=== PATIENT | female | born 1980 | race Caucasian/White ===

== ENCOUNTER 2020-06-04 17:32 | Outpatient (REF) | payer SELFPAY | END 2020-06-04 17:33 | disposition home or self-care (01) | LOC: HO.LAB 17:32 | PROVIDERS: Visit Provider Internal Medicine | DX: Z20.828 Contact with and (suspected) exposure to other viral communicable diseases (principal) | CPT/HCPCS: C9803; U0003 ==

== ENCOUNTER 2022-04-29 15:57 | Emergency (ER) | payer SELFPAY ==
--- NOTE | ~2022-04-29 | XR_ITS ---
EXAMINATION: XR CHEST CLINICAL INFORMATION: Chest pain. COMPARISON: None TECHNIQUE: Frontal view of the chest was obtained. FINDINGS: No significant abnormality is noted involving the heart, lungs, mediastinum, bony thorax or soft tissues. XR/XR chest 1V IMPRESSION: No acute cardiopulmonary process.
[2022-04-29 16:06] VITALS: BP 126/58; PULSE 74; RESP 18; TEMP 37.2; O2SAT 100; BMI 20.9
[2022-04-29 16:33] LABS: COVID-19 Test Negative (Negative); IDNOW Serial# 9DB6401D
[2022-04-29 16:35] LABS: Strep A Nucleic Acid Negative (Negative)
[2022-04-29 16:36] LABS: Influenza A Negative (Negative); Influenza B2 Negative (Negative)
--- NOTE | 2022-04-29 17:07 | ED.URI ---
HPI - URI/Sore Throat General Chief Complaint: Upper Respiratory Symptoms Stated Complaint: cough, headaches, sore throat Time Seen by Provider: 04/29/22 17:05 Source: patient Mode of arrival: ambulatory Limitations: no limitations History of Present Illness HPI Narrative: Patient is a 41-year-old female who presents emergency department for evaluation of upper respiratory symptoms; headache, congestion, sore throat, fatigue. Symptoms onset was 2 days ago. She reports a positive COVID-19 exposure while at a [employer]. Additionally complains of pain with urination. Denies fevers, chills, dizziness, lightheadedness, vision changes, neck pain, neck stiffness, nausea, vomiting, abdominal pain, back pain, flank pain numbness or tingling of extremities. Denies possibility of . Denies pelvic pain, abnormal vaginal discharge. Related Data Allergies Allergy/AdvReac Type Severity Reaction Status Date / Time No Known Allergies Allergy Verified 04/29/22 16:06 Review of Systems Review of Systems: Constitutional: No fever. No chills. No weakness. Positive fatigue. ENT/ Mouth: No Ear Pain, positive Nasal Congestion, positive sore throat, No Rhinorrhea, No Swallowing Difficulty Skin: No rash or itching. Cardiovascular: No chest pain. No palpitations. Respiratory: No shortness of breath. No cough. No sputum production. Gastrointestinal: No nausea. No vomiting. No diarrhea. No abdominal pain. Genitourinary: Positive burning micturition. No urinary frequency. Neurologic: Positive headache. No dizziness. No syncope. No numbness or tingling in the extremities. Musculoskeletal: No muscle pain. No back pain. No joint pain or stiffness. Yes all other systems are reviewed and are negative [facility] Past Medical History Attestation statement: The following information was validated with the patient. Source: old records reviewed Social History Social History Advance Directives: No Advance Directives Information Provided: No Physical Exam Vital Signs: Vital Signs: Last Vital Signs Temp 98.9 F 04/29/22 16:06 Pulse 74 04/29/22 16:06 Resp 18 04/29/22 16:06 BP 126/58 L 04/29/22 16:06 Pulse Ox 100 04/29/22 16:06 O2 Del Method 04/29/22 16:06 BMI result Body Mass Index 20.9 Vital signs have been reviewed as normal and appeared to be correct. Blood pressure normal.? Heart rate normal.? Respiration rate normal. Temperature normal.? Oxygen saturation normal. Appearance: Alert.?Oriented to person, place and time. No acute distress.?Normal affect. Eyes: Pupils equal, round and reactive to light.? ENT: TM normal bilaterally. Pharynx normal.?? Neck: Normal inspection.? Neck supple.??No cervical adenopathy CVS: Heart sounds normal. Normal heart rate and rhythm.? Pulses normal.?? Respiratory: No respiratory distress.? Lung sounds clear to auscultation bilaterally?? Abdomen: Soft and non-tender. Normoactive bowel sounds. Skin: Skin warm and dry.? Normal skin color.? ? Extremities: No lower extremity edema.? Neuro: Moves all extremities spontaneously. Sensation intact bilaterally. No motor deficits. Ambulates with normal steady gait. Course Course Course Narrative: Patient is a 41-year-old female with no significant past medical history, presenting for evaluation of upper respiratory symptoms. COVID-19 testing negative. Influenza testing negative. Strep testing negative. Chest x-ray reveals no acute cardiopulmonary process. At this time history and physical exam not consistent with ACS/PE/pneumonia. Well-appearing, nontoxic, afebrile, no tachycardia or tachypnea/hypoxia. Speaking clear full sentences, ambulatory with steady gait. Suspect symptoms to be secondary to upper respiratory infection, however given her recent exposure did advise that she should have repeat COVID-19 testing obtained in 2-3 days especially for symptoms continue. Discussed conservative treatment including rest, hydration, Tylenol/ibuprofen as needed for fever and body aches, saline nasal spray, humidifier, pqnn-lab-yclxcrc cold medication. Urine negative, and Urinalysis reveals no urinary tract infection, not consistent with pyelonephritis, nephrolithiasis, hydronephrosis. Advised to follow-up with primary care provider within the next week, discussed reasons to return back to the emergency department. All questions were answered. Patient discharged home in stable condition. MDM - URI/Sore Throat Medical Records Attestation: I reviewed the patient's medical records. Lab Data Attestation: I reviewed the patient's lab results. Labs: Lab Results 04/29/22 04/29/22 04/29/22 Range/Units 16:10 16:11 16:11 Urine Color Urine Appearance Urine pH (5.0-9.0) Ur Specific Mccleary (1.005-1.025) Urine Protein (Neg-Trace) mg/dL Urine Glucose (UA) (Negative) mg/dL Urine Ketones (Negative) mg/dL Urine Blood (Negative) Urine Nitrite (Negative) Ur Leukocyte Esterase (Negative) Urine RBC (0-2) /HPF Urine WBC (0-5) /HPF Ur Squamous Epith Cells (0-2) /HPF Urine Bacteria (None Seen) Hyaline Casts (0-2) /LPF Urine Test (NEGATIVE) COVID-19 (RYDER) Negative (Negative) COVID-19 [facility] Com See Note Influenza Type A (MARGARET) Negative (Negative) Influenza Type B (MARGARET) Negative (Negative) Influenza A & B Note See Note S. pyogenes GrpA MARGARET Negative (Negative) 04/29/22 04/29/22 Range/Units 17:46 17:46 Urine Color Yellow Urine Appearance Cloudy Urine pH 5.5 (5.0-9.0) Ur Specific Mccleary 1.015 (1.005-1.025) Urine Protein Negative (Neg-Trace) mg/dL Urine Glucose (UA) Negative (Negative) mg/dL Urine Ketones Negative (Negative) mg/dL Urine Blood Trace H (Negative) Urine Nitrite Negative (Negative) Ur Leukocyte Esterase Negative (Negative) Urine RBC 0-2 (0-2) /HPF Urine WBC 0-5 (0-5) /HPF Ur Squamous Epith Cells 0-2 (0-2) /HPF Urine Bacteria None Seen (None Seen) Hyaline Casts 0-2 (0-2) /LPF Urine Test NEGATIVE (NEGATIVE) COVID-19 (RYDER) (Negative) COVID-19 Clin Com Influenza Type A (MARGARET) (Negative) Influenza Type B (MARGARET) (Negative) Influenza A & B Note S. pyogenes GrpA MARGARET (Negative) Imaging Data Chest x-ray: Radiologist's impression: XR/XR chest 1V IMPRESSION: No acute cardiopulmonary process. Discharge Plan Discharge Clinical Impression: Upper respiratory infection Patient Disposition: Home, Self-Care Instructions: Upper Respiratory Infection (ED) Additional Instructions: Your urine test does not reveal any urinary tract infection. As we discussed, you should consider having your COVID-19 test repeated in 2-3 days especially if you continue to have symptoms given your recent contact. Be sure to rest, stay well hydrated drinking plenty of fluids, eat small frequent meals. Tylenol/ibuprofen can be used as needed for fever/pain. Wlmc-xjt-dhznjpu cold medications may be helpful as well for symptoms. Saline nasal spray, humidifier may be helpful for nasal congestion. You may return to the emergency department with any new or worsening symptoms or concerns. Follow-up with your primary care provider as needed. Referrals: Physician,None [Primary Care Provider] - Stand Alone Forms: Work/School Release Interventions: ED Discharge Assessment Last Done: 04/29/22 18:54 Discharge Date/Time: 04/29/22 18:55 Print Language: New Zealander
[2022-04-29 17:55] LABS: Appearance Urine Cloudy; Color Urine Yellow; Glucose Urine UA Negative (Negative); Leukocyte Esterase Urine Negative (Negative); Nitrite Urine Negative (Negative); PH 5.5 (5.0-9.0); Specific Gravity - Urine 1.015 (1.005-1.025); UMIC TRIGGER UACC YES; UPreg QC Valid YES; Urine Blood Trace (Negative); Urine Ketones Negative (Negative); Urine Pregnancy NEGATIVE (NEGATIVE); Urine Protein Negative (Neg-Trace)
[2022-04-29 18:06] LABS: Bacteria Urine None Seen (None Seen); Hyaline Casts Urine 0-2 /LPF (0-2); RBC Urine 0-2 /HPF (0-2); Squamous Epithelial Cell Urine 0-2 /HPF (0-2); WBC Urine 0-5 /HPF (0-5)
== END 2022-04-29 18:55 | disposition home or self-care (01) ==
PROVIDERS: Nurse Practitioner Family; Emergency Provider Student in an Organized Health Care Education/Training Program
DX: J06.9 Acute upper respiratory infection, unspecified (principal); R51.9 Headache, unspecified; J02.9 Acute pharyngitis, unspecified; R05.9 Cough, unspecified; Z20.822 Contact with and (suspected) exposure to COVID-19
CPT/HCPCS: 71045; 81001; 81025; 87502; 87635; 87651; 99282; 99283

== ENCOUNTER 2023-09-14 17:05 | Emergency (ER) | payer MEDICAID, SELFPAY ==
--- NOTE | ~2023-09-14 | XR_ITS ---
EXAMINATION: XR HAND, LEFT CLINICAL INFORMATION: Pain, injury, first digit. COMPARISON: None available. TECHNIQUE: PA, lateral, and oblique views of the left hand. FINDINGS: The bones and soft tissues are normal. No fracture. Alignment is anatomic. Joint spaces are maintained. No erosions or soft tissue calcifications. XR/XR hand LT min 3V IMPRESSION: Normal left hand.
--- NOTE | 2023-09-14 17:39 | ED.GENADULT ---
HPI - General Adult General Chief complaint: Extremity Injury, Upper Stated complaint: left hand injury swollen and pain Time Seen by Provider: 09/14/23 22:20 Source: patient Mode of arrival: ambulatory Limitations: no limitations History of Present Illness HPI narrative: Patient comes in the emergency room complaining of inflammation/erythema in the webspace between the thumb and index finger of the right hand in the dorsal aspect. 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 Patient states that she also hit her thumb with the instrument. Related Data Previous Rx's Medication Instructions Recorded cephalexin 250 mg capsule 250 mg PO BID #14 caps 09/14/23 doxycycline hyclate 100 mg capsule 100 mg PO BID #14 caps 09/14/23 hydrocortisone 1 % topical cream 1 appl topical QID PRN rash #28.4 09/14/23 (Cortisone (hydrocortisone)) grams Allergies Allergy/AdvReac Type Severity Reaction Status Date / Time No Known Allergies Allergy Verified 09/14/23 17:40 Review of Systems Review of Systems: Constitutional : No Weight loss, No Fever, No Chills, No Night Sweats, No Fatigue, No Malaise ENT/Mouth : No Hearing loss, No Ear Pain, No Nasal Congestion, No Sinus Pain, No Hoarseness, No sore throat, No Rhinorrhea, No Swallowing Difficulty Eyes: No Eye Pain, No Swelling, No Redness, No Foreign Body, No Discharge, No Vision Changes Cardiovascular : No Chest Pain, No SOB, No Dyspnea on Exertion, No Orthopnea, No Edema, No Palpitations Respiratory : No Cough, No Sputum, No Wheezing, No Smoke Exposure, No Dyspnea Gastrointestinal : No Nausea, No Vomiting, No Diarrhea, No Constipation, No abdominal Pain, No Hematochezia, No Melena Genitourinary : no irregular bleeding, No Dysuria, No Urinary Frequency, No Hematuria, No Urinary Incontinence, No Urgency, No Flank Pain, No Urinary Flow Changes, No Hesitancy Musculoskeletal : No joint pain, No Myalgias, No Joint Swelling Skin : Complaining of skin erythema and pain between the index and thumb dorsal aspect of the right hand Neuro : No Weakness, No Numbness, No Paresthesias, No Loss of Consciousness, No Dizziness, No Headache Psych : No Anxiety/Panic, No Depression, No SI/HI/AH/VH, No Social Issues, Heme/Lymph: No Bruising, No Bleeding,No Lymphadenopathy Endocrine : No Polyuria, No Polydipsia, No Temperature Intolerance [facility] Social History Social History Advance Directives: No Advance Directives Information Provided: No Physical Exam ED Vital Signs: Vital Signs - 24 hr 09/14/23 17:41 Temperature 97.6 F Pulse Rate 82 Respiratory Rate 16 Blood Pressure 127/88 Pulse Oximetry 99 Oxygen Delivery Method Room Air BMI result Body Mass Index 25.0 Const Other: Appearance: Alert. Oriented X3. No acute distress. Eyes: Pupils equal, round and reactive to light. ENT: Pharynx normal. Neck: Normal inspection. Neck supple. No lymph nodes noted. No crepitus CVS: Normal heart rate and rhythm. Pulses normal. Normal S1 and S2 Respiratory: No respiratory distress. Breath sounds normal. No Wheezing. No rales Abdomen: Soft and nontender. No rigidity. No distention. Skin: Skin warm and dry. Normal skin color. Normal skin turgor. See extremity below Extremities: No lower extremity edema. No Lacerations. No Rash, in the webspace dorsal aspect between the thumb and index finger there is a patch of erythema, pain to palpation. Patient able to flex and extend the fingers. Neuro: Oriented X 3. No motor deficit. No sensory deficit. Moving all extremities. No slurred speech. CN 2 through 12 grossly intact Psych: calm, cooperative, normal affect Course Course Course Narrative: RME performed by Devorah Fallon PA-C. Patient is a 43 year old assigned female at presenting to the emergency department with left hand / thumb pain. Detailed physical exam and review of systems are deferred to the lumber kiln operator. Imaging ordered. Patient placed back in the waiting room pending room availability and results. Medical Decision Making Medical Decision Making MDM Narrative: -discussed the physical exam with the patient, slightly cellulitis versus topical dermatitis -my interpretation of x-ray of the hand: No fracture, normal alignment -patient was given the 1st dose of antibiotics in the emergency room Differential Diagnosis Differential Diagnoses: The differential diagnosis associated with the presentation includes (As above) Independent Interpretation I performed an independent interpretation of an: Plain X-Ray Radiology Impression Discussion of test interpretation with radiology: I have reviewed the radiologist's reading. Radiologist Impression: FINDINGS: The bones and soft tissues are normal. No fracture. Alignment is anatomic. Joint spaces are maintained. No erosions or soft tissue calcifications. XR/XR hand LT min 3V IMPRESSION: Normal left hand. Discharge Plan Discharge Clinical Impression: Cellulitis, Sprain and strain of wrist Patient Disposition: Home, Self-Care Instructions: Cellulitis (ED) Additional Instructions: Please follow-up with your primary care physician tomorrow. If you have any worsening or new symptoms, please return to the emergency room or call 911 Prescriptions: New cephalexin 250 mg capsule 250 mg PO BID Qty: 14 0RF doxycycline hyclate 100 mg capsule 100 mg PO BID Qty: 14 0RF hydrocortisone [Cortisone (hydrocortisone)] 1 % cream 1 appl topical QID PRN (Reason: rash) Qty: 28.4 0RF
[2023-09-14 17:41] VITALS: BP 127/88; PULSE 82; RESP 16; TEMP 36.4; O2SAT 99; BMI 25.0
[2023-09-14] MEDS: Doxycycline Monohydrate 100 MG CAPSULE PO (22:39)
[2023-09-14] MEDS: cephALEXin 250 MG CAPSULE PO (22:39)
[2023-09-14 23:04] VITALS: BP 136/79; PULSE 71; RESP 20; TEMP 36.8; O2SAT 98
[2023-09-14 23:17] VITALS: BP 136/79; PULSE 71; RESP 20; TEMP 36.8; O2SAT 98
== END 2023-09-14 23:21 | disposition home or self-care (01) ==
PROVIDERS: Emergency Provider Emergency Medicine
DX: L03.114 Cellulitis of left upper limb (principal); S63.502A Unspecified sprain of left wrist, initial encounter; S66.912A Strain of unspecified muscle, fascia and tendon at wrist and hand level, left hand, initial encounter; X58.XXXA Exposure to other specified factors, initial encounter; Y93.J2 Activity, drum and other percussion instrument playing; Y92.9 Unspecified place or not applicable; Y99.9 Unspecified external cause status
CPT/HCPCS: 73130; 99283; 99284

== ENCOUNTER 2023-09-16 17:37 | Emergency (ER) | payer MEDICAID, SELFPAY ==
[2023-09-16 18:22] VITALS: BP 115/90; PULSE 99; RESP 20; TEMP 37.1; O2SAT 100; BMI 28.1
--- NOTE | 2023-09-16 18:23 | ED_ITS ---
HPI - General Adult General Chief complaint: Extremity Problem Stated complaint: worsening swelling in hand, was here thursday Time Seen by Provider: 09/16/23 20:31 Source: patient Mode of arrival: ambulatory History of Present Illness HPI narrative: 43-year-old female who was seen 2 days ago here in the emergency room for similar symptoms of pain and redness at the left thumb Related Data Previous Rx's Medication Instructions Recorded cephalexin 250 mg capsule 250 mg PO BID #14 caps 09/14/23 doxycycline hyclate 100 mg capsule 100 mg PO BID #14 caps 09/14/23 hydrocortisone 1 % topical cream 1 appl topical QID PRN rash #28.4 09/14/23 (Cortisone (hydrocortisone)) grams Allergies Allergy/AdvReac Type Severity Reaction Status Date / Time No Known Allergies Allergy Verified 09/16/23 18:25 Review of Systems 2 Review of Systems: Pertinent positives and negatives as stated in HPI PMFSH Past Medical History Source: nursing notes reviewed Social History Social History Advance Directives: No Advance Directives Information Provided: No Physical Exam ED Vital Signs: Vital Signs - 24 hr 09/16/23 18:22 Temperature 98.8 F Pulse Rate 99 Respiratory Rate 20 Blood Pressure 115/90 H Pulse Oximetry 100 Oxygen Delivery Method Room Air BMI result Body Mass Index 28.1 VITAL SIGNS: Reviewed. GENERAL: Well developed, well nourished, in no acute distress. HEAD: Normocephalic/atraumatic EYES: PERRLA, EOMI LUNGS: Normal breath sounds. No adventitious sounds or accessory muscle use. CARDIOVASCULAR: Regular rate and rhythm without noted murmurs ABDOMEN: Soft, non-tender, non-distended with bowel sounds. MUSCULOSKELETAL: No tenderness, deformities, or effusions noted on gross inspection. EXTREMITIES: No cyanosis, clubbing or edema. LEFT HAND: There is no erythema or induration noted, good sensation, capillary refill less than 2 seconds, palpable pulses and good range of motion though there is noted discomfort. SKIN: Inspection of the skin reveals no rashes NEUROLOGIC: Alert and oriented x 4. Strength and sensation to light touch were grossly intact x 4. Course Course Course Narrative: This is an RME: Additional HPI, ROS, PE not included below will be deferred to primary provider. This is a 43-year-old female presenting to the emergency department with complaints of left thumb pain and swelling. Patient was seen here several days ago and was treated for cellulitis with Keflex and doxy she has been taking these medications without any relief. States worsening swelling and pain. Limited range of motion of the hand. Vital signs stable. She is afebrile. Strong radial pulse. She is tearful Plan: Labs, further ER evaluation needed Medical Decision Making Medical Decision Making [facility] Narrative: 43-year-old female with history and clinical presentation of inciting injury occurring after a long session of drumming. I did review all investigations today which do not demonstrate a leukocytosis/left shift/anemia or thrombocytopenia. Chemistry indices do not demonstrate an ASHA or electrolyte/liver enzyme derangements and inflammatory markers are not elevated. I did review prior imaging studies which were negative, patient was reassured and instructed to complete the entire course of antibiotics and anti- inflammatories. When I compare the hand to noted marking by previous provider there is obvious improvement. Differential Diagnosis Differential Diagnoses: The differential diagnosis associated with the presentation includes Please see the discussion above Admission/Observation Consideration of admission/observation: Escalation of care including admission/observation considered Please see the discussion above Lab Data [facility] Lab Attestation statement: I reviewed the patient's lab results. Please see the discussion above 09/16/23 19:21 09/16/23 19:21 Labs: Lab Results 09/16/23 Range/Units 19:21 WBC 9.1 (4.8-10.8) X10*3/uL RBC 4.21 (4.20-5.50) X10*6/uL Hgb 13.6 (12.0-16.0) g/dl Hct 40.4 (37.0-47.0) % MCV 96.0 (80.0-98.0) fL MCH 32.3 (27.0-33.0) pg MCHC 33.7 (31.0-35.0) g/dl RDW 13.4 (11.0-16.0) % Plt Count 396 (160-400) X10*3/uL MPV 9.1 L (9.4-12.3) fL Immature Gran % (Auto) 0.2 (0.0-0.4) % Neut % (Auto) 68.3 (45-73) % Lymph % (Auto) 21.3 (20-40) % [place] % (Auto) 7.5 (2-11) % Eos % (Auto) 2.3 (0-4) % Baso % (Auto) 0.4 (0-2) % Lymph # (Auto) 1.9 (1.2-4.9) X10*3/uL [place] # (Auto) 0.7 (0.1-1.2) X10*3/uL Eos # (Auto) 0.2 (0.0-0.4) X10*3/uL Baso # (Auto) 0.0 (0.0-0.2) X10*3/uL Abs Immat Gran (auto) 0.02 (0.00-0.03) X10*3/uL Absolute Neuts (auto) 6.2 (2.0-8.3) x10*3/uL Absolute Nucleated RBC 0.000 (0.0-0.012) X10*3/uL Nucleated RBC % (auto) 0.0 (0.0-0.2) /100WBC ESR 13 (0-20) MM/HR Sodium 137 (135-145) mmol/L Potassium 3.8 (3.3-5.1) mmol/L Chloride 107 (96-108) mmol/L Carbon Dioxide 23 (22-29) mmol/L Anion Gap 11 L (12-20) BUN 9 (9-16) mg/dL Creatinine 0.70 (0.5-1.4) mg/dL Estim Creat Clear Calc 115.2 Estimated GFR > 60 Random Glucose 95 (60-115) mg/dL Calcium 9.3 (8.4-10.2) mg/dL Total Bilirubin 0.3 (0.0-1.0) mg/dL Direct Bilirubin 0.1 (0.0-0.5) mg/dL AST 10 (5-31) U/L ALT 10 (0-31) U/L Alkaline Phosphatase 77 (39-117) U/L C-Reactive Protein 0.20 (< or = 0.50) mg/dL Total Protein 7.3 (6.5-8.0) g/dL Albumin 4.1 (3.5-5.0) g/dL External Record Review External record reviewed: Outpatient record, Prior outpatient labs and Prior outpatient radiology Critical Care Time Critical Care Time Critical Care Time: Yes Total Critical Care Time: 30 Attestation: I personally attest to this time spent taking care of the patient. Discharge Plan Discharge Clinical Impression: Tendinitis Patient Disposition: Home, Self-Care Instructions: Tendinitis (ED) Additional Instructions: 1. Please complete the entire course of your medications. 2. Continue to use Tylenol ibuprofen for pain control. 3. Follow-up with your primary care provider. Return to the ER for any worsening symptoms. Prescriptions: No Action cephalexin 250 mg capsule 250 mg PO BID Qty: 14 0RF doxycycline hyclate 100 mg capsule 100 mg PO BID Qty: 14 0RF hydrocortisone [Cortisone (hydrocortisone)] 1 % cream 1 appl topical QID PRN (Reason: rash) Qty: 28.4 0RF Print Language: Irish
[2023-09-16 19:29] LABS: MANUAL DIFF FLAG NO
[2023-09-16 19:31] LABS: Basophils Percent Auto 0.4 % (0-2); Eosinophils Absolute Auto 0.2 X10*3/uL (0.0-0.4); Eosinophils Percent Auto 2.3 % (0-4); Hematocrit 40.4 % (37.0-47.0); Hemoglobin 13.6 g/dl (12.0-16.0); Imm Gran Abs Auto 0.02 X10*3/uL (0.00-0.03); Imm Gran Pct Auto 0.2 % (0.0-0.4); Lymphocytes Absolute Auto 1.9 X10*3/uL (1.2-4.9); Lymphocytes Percent Auto 21.3 % (20-40); Mean Corpuscular HGB Conc 33.7 g/dl (31.0-35.0); Mean Corpuscular Hemoglobin 32.3 pg (27.0-33.0); Mean Platelet Volume 9.1 fL (9.4-12.3); Monocytes Absolute Auto 0.7 X10*3/uL (0.1-1.2); Monocytes Percent Auto 7.5 % (2-11); Neutrophils Absolute Auto 6.2 x10*3/uL (2.0-8.3); Neutrophils Percent Auto 68.3 % (45-73); Platelet Count 396 X10*3/uL (160-400); Red Blood Count 4.21 X10*6/uL (4.20-5.50); Red Cell Distribution Width 13.4 % (11.0-16.0); White Blood Count 9.1 X10*3/uL (4.8-10.8)
[2023-09-16 19:45] LABS: Alanine Aminotransferase 10 U/L (0-31); Albumin Level 4.1 g/dL (3.5-5.0); Alkaline Phosphatase 77 U/L (39-117); Anion Gap 11 (12-20); Aspartate Amino Transferase 10 U/L (5-31); Bilirubin Direct 0.1 mg/dL (0.0-0.5); Bilirubin Total 0.3 mg/dL (0.0-1.0); Blood Urea Nitrogen 9 mg/dL (9-16); Calcium 9.3 mg/dL (8.4-10.2); Carbon Dioxide 23 mmol/L (22-29); Chloride 107 mmol/L (96-108); Creatinine Clr Calc Pharmacy 115.2; Estimated Glomerular Filt Rate > 60; Glucose Random 95 mg/dL (60-115); Potassium 3.8 mmol/L (3.3-5.1); Sodium 137 mmol/L (135-145); Total Protein 7.3 g/dL (6.5-8.0)
[2023-09-16 20:07] LABS: Erythrocyte Sedimentation Rate 13 MM/HR (0-20)
[2023-09-16] MEDS: Ibuprofen 400 MG TABLET PO (21:21)
[2023-09-16] MEDS: Acetaminophen 325 MG TABLET 975 MG PO (21:21)
[2023-09-16 21:24] VITALS: BP 113/57; PULSE 70; RESP 18; TEMP 36.8; O2SAT 98
== END 2023-09-16 21:25 | disposition home or self-care (01) ==
PROVIDERS: Physician Assistant Medical; Emergency Provider Student in an Organized Health Care Education/Training Program
DX: M77.9 Enthesopathy, unspecified (principal)
CPT/HCPCS: 36415; 80048; 80076; 85025; 85652; 86140; 99283

== ENCOUNTER 2024-01-06 20:31 | Emergency (ER) | payer OTHER, SELFPAY ==
--- NOTE | ~2024-01-06 | CT_ITS ---
EXAMINATION: CT ABDOMEN AND PELVIS WITHOUT CONTRAST CLINICAL INFORMATION: R flank pain. COMPARISON: No pertinent prior studies are available for comparison. TECHNIQUE: Multidetector volumetric imaging was performed from the superior aspect of the liver through the pubic symphysis without contrast per renal stone protocol. Sagittal and coronal reformatted images were obtained on the technologist workstation. This CT examination was performed using dose optimization techniques as appropriate, variously including the following: *Automated exposure control *Adjustment of mA and/or kV according to patient size (this includes techniques or standardized protocols for targeted exams where dose is matched to indication/reason for exam; i.e. extremities or head) *Use of iterative reconstruction technique DLP: 395 mGy-cm. FINDINGS: LUNG BASES: The visualized lung bases are unremarkable. LIVER, GALLBLADDER, BILIARY TREE: The non-contrast liver is normal in size, shape, and attenuation. No focal hepatic lesion or biliary ductal dilatation is present. The gallbladder is presumed surgically absent. PANCREAS: Unremarkable. SPLEEN: Unremarkable. ADRENAL GLANDS: Unremarkable. KIDNEYS AND URETERS: The kidneys are normal in size, shape, and attenuation. 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 No hydronephrosis, hydroureter, or perinephric stranding. No calculi. BLADDER: Decompressed GASTROINTESTINAL TRACT: A few scattered colonic diverticula are seen but no colonic wall thickening or pericolonic inflammatory change to suggest diverticulitis. The appendix is nonvisualized and presumably surgically absent. No focal inflammatory changes are seen in the expected location. Small bowel is unremarkable ABDOMINAL WALL: No significant hernia is appreciated. LYMPHOVASCULAR STRUCTURES: Minimal vascular calcification within the aorta iliac system. No bulky adenopathy.. PELVIC VISCERA: Retroverted uterus OSSEUS STRUCTURES: Unremarkable. CT/CT abdomen pelvis wo IV con IMPRESSION: No acute intra-abdominal process seen. No renal or ureteric calculi. No obstructive changes to the kidneys.
[2024-01-06 20:34] VITALS: BP 142/94; PULSE 83; RESP 20; TEMP 36.6; O2SAT 100; BMI 28.2
--- NOTE | 2024-01-06 20:35 | ED_ITS ---
HPI - General Adult General Chief complaint: Abdominal Pain Stated complaint: and and back pain Time Seen by Provider: 01/07/24 01:28 Source: patient, RN notes reviewed and old records reviewed Mode of arrival: ambulatory Limitations: no limitations History of Present Illness ED Provider: Moises BOWLING narrative: 43-year-old female presents for evaluation of right-sided abdominal pain with nausea and vomiting since yesterday. Her pain now radiates to her back. She denies any burning with urination. Denies any fevers, chills Patient reports a history of kidney stones. She is status post cholecystectomy and appendectomy Denies any fevers, chills. She reports her pain is 9/10 Related Data Previous Rx's ?Medication ?Instructions ?Recorded cephalexin 250 mg capsule 250 mg PO BID #14 caps 09/14/23 doxycycline hyclate 100 mg capsule 100 mg PO BID #14 caps 09/14/23 hydrocortisone 1 % topical cream 1 appl topical QID PRN rash #28.4 09/14/23 (Cortisone (hydrocortisone)) grams ondansetron 4 mg disintegrating 4 mg PO Q8H PRN nausea and 01/07/24 tablet vomiting #20 tabs Allergies Allergy/AdvReac Type Severity Reaction Status Date / Time No Known Allergies Allergy Verified 01/06/24 20:36 Review of Systems 2 Constitutional: Constitutional: Denies body ache(s), Denies chills, Denies fever(s) and Denies headache(s) Eyes: Eyes: Denies blurry vision ENT: Denies headache(s) and Denies sore throat Cardiovascular: Cardiovascular: Denies chest pain and Denies dyspnea Respiratory: Respiratory: Denies cough and Denies dyspnea Gastrointestinal: Gastrointestinal: Reports abdominal pain, Reports nausea and Reports vomiting Musculoskeletal: Musculoskeletal: Reports back pain Integumentary/Breasts: Skin/Breast: Denies rash Neurologic: Denies headache(s) [facility] Past Medical History Medical History (Updated 01/07/24 @ 01:34 by Harshil De Leon) No known health problems Social History Social History Smoked in Last 30 Days: No Use of substances other than those prescribed or required for medical reasons: No Advance Directives: No Advance Directives Information Provided: Yes Do you have a plan to hurt others: No Plan Physical Exam ED Vital Signs: Vital Signs - 24 hr 01/06/24 20:34 01/07/24 00:38 Temperature 97.8 F 98.2 F Pulse Rate 83 73 Respiratory Rate 20 18 Blood Pressure 142/94 H 138/66 Pulse Oximetry 100 97 Oxygen Delivery Method Room Air Room Air BMI result Body Mass Index 28.2 Const General: healthy appearing, comfortable, no acute distress, alert and awake Nutritional Appearance: well nourished Orientation/consciousness: patient oriented x3 HENMT Head: Yes normocephalic and Yes atraumatic Eyes Eyelids: Yes eyelids normal Conjunctivae: conjunctivae normal Sclerae: sclerae normal Corneas: corneas normal Pupils: Equal, round and reactive pupils present EOM: EOMs intact bilaterally Neck Neck: Yes full ROM Resp Effort & Inspection: normal respiratory effort, able to speak in complete sentences and not labored GI Inspection: No distended Palpation (GI): Soft to palpation, not firm, Tenderness to palpation present (GI) in the RLQ and in the RUQ, no guarding and not rigid Skin General skin exam: elasticity normal Neuro General: patient oriented x3 Cranial nerves: Yes Equal, round and reactive pupils present and Yes Bilaterally intact EOM present Cognition (Neuro): normal cognition Extrem Other: Moving all extremities well without any obvious deformities Course Course Course Narrative: This is an RME: Additional HPI, ROS, PE not included below will be deferred to primary provider. RME assessment and note performed by: Angelina Adam PA-C This is a [id number]-female, with no known medical problems, who presents to the ER with complaints of abdominal pain and right sided flank pain since yesterday. No urinary symptoms. +CVA tenderness. Plan: Labs, CT, UA Medical Decision Making Medical Decision Making MDM Narrative: 43-year-old female presents for evaluation of abdominal pain, nausea vomiting. She is status post cholecystectomy and appendectomy. Her pain started yesterday, her vitals are within normal limits. Her labs show no leukocytosis or left shift. Chemistries are within normal limits, no electrolyte abnormalities. Renal function within normal limits. No LFT abnormalities, she has not . A CT scan was ordered in triage which shows no acute intra- abdominal process. No renal calculi seen. Her UA shows no evidence of UTI but does show trace blood. It is possible that she passed a stone. We will treat her with Toradol, Zofran she will be discharged Differential Diagnosis Differential Diagnoses: The differential diagnosis associated with the presentation includes Abdominal pain Flank pain Obstructive uropathy Gastroenteritis Constipation Lab Data MDM Lab Attestation statement: I reviewed the patient's lab results. See medical decision making about 01/06/24 21:17 01/06/24 21:17 Labs: Lab Results 01/06/24 Range/Units 21:17 WBC 8.3 (4.8-10.8) X10*3/uL RBC 4.37 (4.20-5.50) X10*6/uL Hgb 14.0 (12.0-16.0) g/dl Hct 41.8 (37.0-47.0) % MCV 95.7 (80.0-98.0) fL MCH 32.0 (27.0-33.0) pg MCHC 33.5 (31.0-35.0) g/dl RDW 14.4 (11.0-16.0) % Plt Count 335 (160-400) X10*3/uL MPV 8.9 L (9.4-12.3) fL Immature Gran % (Auto) 0.2 (0.0-0.4) % Neut % (Auto) 66.6 (45-73) % Lymph % (Auto) 23.1 (20-40) % [place] % (Auto) 7.4 (2-11) % Eos % (Auto) 2.2 (0-4) % Baso % (Auto) 0.5 (0-2) % Lymph # (Auto) 1.9 (1.2-4.9) X10*3/uL [place] # (Auto) 0.6 (0.1-1.2) X10*3/uL Eos # (Auto) 0.2 (0.0-0.4) X10*3/uL Baso # (Auto) 0.0 (0.0-0.2) X10*3/uL Abs Immat Gran (auto) 0.02 (0.00-0.03) X10*3/uL Absolute Neuts (auto) 5.5 (2.0-8.3) x10*3/uL Absolute Nucleated RBC 0.000 (0.0-0.012) X10*3/uL Nucleated RBC % (auto) 0.0 (0.0-0.2) /100WBC Sodium 139 (135-145) mmol/L Potassium 4.8 D (3.3-5.1) mmol/L Chloride 107 (96-108) mmol/L Carbon Dioxide 26 (22-29) mmol/L Anion Gap 11 L (12-20) BUN 11 (9-16) mg/dL Creatinine 0.87 (0.5-1.4) mg/dL Estim Creat Clear Calc 86.8 Estimated GFR > 60 Random Glucose 98 (60-115) mg/dL Calcium 9.1 (8.4-10.2) mg/dL Total Bilirubin 0.2 (0.0-1.0) mg/dL Direct Bilirubin < 0.2 (0.0-0.5) mg/dL AST 11 (5-31) U/L ALT 9 (0-31) U/L Alkaline Phosphatase 60 (39-117) U/L Total Protein 7.3 (6.5-8.0) g/dL Albumin 4.1 (3.5-5.0) g/dL Lipase 34 (8-78) U/L Beta HCG, Quant < 2 mIU/mL Urine Color Yellow Urine Appearance Clear Urine pH 6.0 (5.0-9.0) Ur Specific [place] 1.025 (1.005-1.025) Urine Protein Negative (Neg-Trace) mg/dL Urine Glucose (UA) Negative (Negative) mg/dL Urine Ketones Negative (Negative) mg/dL Urine Blood Trace H (Negative) Urine Nitrite Negative (Negative) Ur Leukocyte Esterase Negative (Negative) Urine RBC 3-5 H (0-2) /HPF Urine WBC 0-5 (0-5) /HPF Ur Squamous Epith Cells 0-2 (0-2) /HPF Urine Bacteria None Seen (None Seen) Hyaline Casts 0-2 (0-2) /LPF Independent Interpretation I performed an independent interpretation of an: CT Scan (Agree with Radiology interpretation. No obvious obstructive uropathy. No significant stool burden) Radiology Impression Discussion of test interpretation with radiology: I have reviewed the radiologist's reading. Radiologist Impression: CT/CT abdomen pelvis wo IV con IMPRESSION: No acute intra-abdominal process seen. No renal or ureteric calculi. No obstructive changes to the kidneys. Discharge Plan Discharge Clinical Impression: Abdominal pain Patient Disposition: Home, Self-Care Instructions: Abdominal Pain (ED) Additional Instructions: Your workup in the ER today was reassuring. This includes your blood work, your urine sample and your CT scan. There was a small amount of blood noted in your urine. It is possible that you passed a kidney stone prior to your CT scan Use ibuprofen/Tylenol for pain, return for new or worsening symptoms Prescriptions: New ondansetron 4 mg tablet,disintegrating 4 mg PO Q8H PRN (Reason: nausea and vomiting) Qty: 20 0RF No Action cephalexin 250 mg capsule 250 mg PO BID Qty: 14 0RF doxycycline hyclate 100 mg capsule 100 mg PO BID Qty: 14 0RF hydrocortisone [Cortisone (hydrocortisone)] 1 % cream 1 appl topical QID PRN (Reason: rash) Qty: 28.4 0RF Print Language: Trinid[place]
[2024-01-06 21:24] LABS: MANUAL DIFF FLAG NO
[2024-01-06 21:25] LABS: Basophils Percent Auto 0.5 % (0-2); Eosinophils Absolute Auto 0.2 X10*3/uL (0.0-0.4); Eosinophils Percent Auto 2.2 % (0-4); Hematocrit 41.8 % (37.0-47.0); Imm Gran Abs Auto 0.02 X10*3/uL (0.00-0.03); Imm Gran Pct Auto 0.2 % (0.0-0.4); Lymphocytes Absolute Auto 1.9 X10*3/uL (1.2-4.9); Lymphocytes Percent Auto 23.1 % (20-40); Mean Corpuscular HGB Conc 33.5 g/dl (31.0-35.0); Mean Corpuscular Volume 95.7 fL (80.0-98.0); Mean Platelet Volume 8.9 fL (9.4-12.3); Monocytes Absolute Auto 0.6 X10*3/uL (0.1-1.2); Monocytes Percent Auto 7.4 % (2-11); Neutrophils Absolute Auto 5.5 x10*3/uL (2.0-8.3); Neutrophils Percent Auto 66.6 % (45-73); Platelet Count 335 X10*3/uL (160-400); Red Blood Count 4.37 X10*6/uL (4.20-5.50); Red Cell Distribution Width 14.4 % (11.0-16.0); White Blood Count 8.3 X10*3/uL (4.8-10.8)
[2024-01-06 21:27] LABS: Appearance Urine Clear; Color Urine Yellow; Glucose Urine UA Negative (Negative); Leukocyte Esterase Urine Negative (Negative); Nitrite Urine Negative (Negative); Specific Gravity - Urine 1.025 (1.005-1.025); UMIC TRIGGER UACC YES; Urine Blood Trace (Negative); Urine Ketones Negative (Negative); Urine Protein Negative (Neg-Trace)
[2024-01-06 21:32] LABS: Bacteria Urine None Seen (None Seen); Hyaline Casts Urine 0-2 /LPF (0-2); Squamous Epithelial Cell Urine 0-2 /HPF (0-2); WBC Urine 0-5 /HPF (0-5)
[2024-01-06 21:46] LABS: Alanine Aminotransferase 9 U/L (0-31); Albumin Level 4.1 g/dL (3.5-5.0); Alkaline Phosphatase 60 U/L (39-117); Anion Gap 11 (12-20); Aspartate Amino Transferase 11 U/L (5-31); Bilirubin Direct < 0.2 mg/dL (0.0-0.5); Bilirubin Total 0.2 mg/dL (0.0-1.0); Blood Urea Nitrogen 11 mg/dL (9-16); Calcium 9.1 mg/dL (8.4-10.2); Carbon Dioxide 26 mmol/L (22-29); Chloride 107 mmol/L (96-108); Creatinine Clr Calc Pharmacy 86.8; Estimated Glomerular Filt Rate > 60; Glucose Random 98 mg/dL (60-115); HCG Quantitative < 2 mIU/mL; Lipase 34 U/L (8-78); Potassium 4.8 mmol/L (3.3-5.1); Sodium 139 mmol/L (135-145); Total Protein 7.3 g/dL (6.5-8.0)
--- NOTE | 2024-01-06 23:37 | PC.NURSE ---
Pt brought to [facility] for treatment, assumed care of pt at this time. A&Ox3 skin pwd respirations even unlabored, endorsing diffuse abd pain radiating into right flank beginning yesterday. N/V, denies urinary symptoms. Results received, awaiting MD reeval, aware of plan of care.
[2024-01-07 00:38] VITALS: BP 138/66; PULSE 73; RESP 18; TEMP 36.8; O2SAT 97
[2024-01-07] MEDS: Ondansetron ODT 4 MG TAB.RAPDIS TRANSLINGU (02:05)
[2024-01-07] MEDS: Ketorolac Tromethamine 30 MG/ML VIAL IM (02:06)
[2024-01-07 02:07] VITALS: BP 138/66; PULSE 73; RESP 18; TEMP 36.8; O2SAT 97
== END 2024-01-07 02:08 | disposition home or self-care (01) ==
PROVIDERS: Physician Assistant Medical; Emergency Provider Internal Medicine
DX: R10.31 Right lower quadrant pain (principal); R11.2 Nausea with vomiting, unspecified; M54.50 Low back pain, unspecified; Z79.899 Other long term (current) drug therapy
CPT/HCPCS: 36415; 74176; 80048; 80076; 81001; 83690; 84702; 85025; 96372; 99284; J1885

== ENCOUNTER 2025-02-05 14:09 | Emergency (ER) | payer OTHER, SELFPAY ==
--- OUTSIDE RECORDS SUMMARY | 2007-10-17 21:00 | XMS_ITS | Continuity of Care Document ---
Author Organization [facility] Address [address] [place] [address] Phone Care Team Providers Care Superintendent Pipelines Name Role Phone NIKHIL ROBLES DMIN Unavailable Unavailable Advance Directives Directive Yes / No Effective Date File Name No Information Encounters Encounter Description Practice Location Reason(s) For Visit Diagnoses Date Provider Providers Copied on Encounter [facility], [address] [place], [place], [id number] tel:[phone] [facility] No Information [address] [employer], [id number], [place], [place], [id number]. tel:[phone] Family History Family Member Type Diagnosis Age At Onset No Information Payers Payer name Insurance type Covered green party ID Authoriza tion(s) No Information Social [...]
--- NOTE | ~2025-02-05 | XR_ITS ---
CLINICAL HISTORY: pain, injury Exam: PA, lateral, oblique, and scaphoid views of the right wrist. Comparison: Right hand radiographs from same time. Findings: Bony alignment is anatomic. No acute fracture. Specifically, no cortical disruption of the scaphoid. No erosions. Impression: No fracture. This document has been electronically signed by: Zeb Khan MD on 02/05/2025 15:41:16
--- NOTE | ~2025-02-05 | XR_ITS ---
CLINICAL HISTORY: pain, injury Exam: AP, lateral, and oblique views of the right hand. Comparison: Right wrist radiographs from same time. Findings: Overall bony alignment is anatomic. No acute fracture. No erosions. Impression: No acute findings. This document has been electronically signed by: Zeb Khan MD on 02/05/2025 15:40:36
[2025-02-05 14:43] VITALS: BP 118/58; PULSE 80; RESP 16; TEMP 36.1; O2SAT 100; BMI 25.9
--- NOTE | 2025-02-05 14:44 | ED_ITS ---
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 Patient states that she was stirring rice and began to have significant pain to the right wrist and hand. Patient denies any dizziness, lightheadedness, abdominal pain, nausea, vomiting, fever, chills, blurry vision, double vision, loss of vision, chest pain, difficulty breathing, shortness of breath, back pain, night sweats, pain with urination, increased urinary frequency, increased urinary urgency, blood in her urine or stool, syncope or a near syncopal episode, recent trauma or falls, bowel incontinence, bladder incontinence, or any other complaints at this time. Onset (ago): week(s) (1) Location: right and upper extremity Relieving factors: none Exacerbating factors: movement Associated symptoms: denies other symptoms Treatments prior to arrival: none Related Data Previous Rx's ?Medication ?Instructions ?Recorded cephalexin 250 mg capsule 250 mg PO BID #14 caps 09/13 doxycycline hyclate 100 mg capsule 100 mg PO BID #14 c aps 09/14/23 hydrocortisone 1 % topical cream 1 appl topical QID NC N rash #28.4 09/14/23 (Cortisone (hydrocortisone)) grams ondansetron 4 mg disintegrating 4 mg PO Q8H PRN nausea and 01/07/24 tablet vomiting #20 tabs naproxen 500 mg tablet 500 mg PO BID 7 days #14 tab s 02/05/25 prednisone 20 mg tablet 20 mg PO DAILY 7 days #7 tab s 02/05/25 Allergies Allergy/AdvReac Type Severity Reaction Status Date / Time No Known Allergies Allergy Verified 02/05/25 14:46 Review of Systems Constitutional: Constitutional: Reports no additional constitutional complaints, Denies chills, Denies fever(s) and Denies night sweats Eyes: Eyes: Reports no additional eye complaints, Denies blurry vision, Denies change in vision, Denies diplopia, Denies eye discharge, Denies loss of vision and Denies eye pain ENT: Denies dizziness Cardiovascular: Cardiovascular: Reports no additional cardiovascular complaints, Denies chest pain, Denies lightheadedness, Denies Loss of Consciousness and Denies dyspnea Respiratory: Respiratory: Reports no additional respiratory complaints and Denies dyspnea Gastrointestinal: Gastrointestinal: Reports no additional gastrointestinal complaints, Denies abdominal pain, Denies melena, Denies hematochezia, Denies change in bowel habits and Denies change in stool character Genitourinary: Genitourinary: Denies hematuria, Denies urinary frequency, Denies dysuria, Denies urinary incontinence, Denies urinary hesitancy and Denies urinary urgency Musculoskeletal: Musculoskeletal: Reports no additional musculoskeletal complaints, Denies numbness and Denies tingling Comments: right hand pain Neurologic: Denies dizziness, Denies loss of vision, Denies numbness and Denies tingling Psychiatric: Psychiatric: Reports no additional psychiatric complaints Endocrine: Endocrine: Reports no additional endocrine complaints Hematologic/Lymphatic: Hematologic/Lymphatic: Reports no additional hematologic/lymphatic complaints Allergic/Immunologic: Allergic/Immunologic: Reports no additional allergic/immunologic complaints PMFSH Past Medical History Attestation statement: The following information was validated with the patient. (patient's boyfriend validated all information) Source: old records reviewed, nursing notes reviewed and other (patient's boyfriend provided additional history and confirmed the history provided by the patient. ) Medical History No known health problems Social History Social History Advance Directives: No Advance Directives Information Provided: No Do you have a plan to hurt others: No Plan Physical Exam ED Vital Signs: Vital Signs - 24 hr 02/05/25 14:43 02/05/25 17:24 Temperature 97.0 F 97.0 F Pulse Rate 80 80 Respiratory Rate 16 16 Blood Pressure 118/58 L 118/58 L Pulse Oximetry 100 100 Oxygen Delivery Method Nasal Cannula Nasal Cannula BMI result Body Mass Index 25.9 Const General: cooperative, no acute distress, alert and awake Nutritional Appearance: well nourished Orientation/consciousness: patient oriented x3 HENMT Head: Yes normal to inspection and Yes atraumatic Ears: hearing grossly normal bilaterally and external ears normal General nose exam: Normal external nose present, no nasal discharge noted and no epistaxis Face and sinus: Yes normal facial exam, No abrasion and No laceration Mouth: Normal oral and palatal mucosa present, no drooling and no muffled voice Eyes General: appearance normal, both eyes and all related structures Periorbital: periorbital findings normal Eyelids: Yes eyelids normal Conjunctivae: conjunctivae normal Pupils: Equal, round and reactive pupils present EOM: EOMs intact bilaterally Neck Neck: Yes normal visual inspection and Yes full ROM Resp Effort & Inspection: normal respiratory effort and able to speak in complete sentences Neuro General: patient oriented x3, moves all extremities and CN's II-XI intact bilaterally Cranial nerves: Yes Equal, round and reactive pupils present Cognition (Neuro): normal cognition Extrem General: Yes normal to inspection, Yes full ROM and Yes capillary refill normal Psych Appearance: grossly normal Mental Status: mental status grossly normal Affect: normal affect Attitude: cooperative Thought process: Normal thought process present Thought content: Normal thought content present Insight: Good insight present (Psych) Course Course Course Narrative: Rapid medical examination performed in triage by Devorah Fallon PA-C. Patient is a 44 year old assigned female at presenting to the emergency department with right wrist / hand pain. Patient states she was stirring rice and her right wrist and hand began to hurt. Detailed physical exam and review of systems are deferred to the center administrator. Imaging ordered. Patient placed back in the waiting room pending room availability and results. Medical Decision Making Medical Decision Making MDM Narrative: Patient is a 44 year old assigned female at with no reported medical history presenting to the emergency department today with right hand and wrist pain. Patient's physical exam was unremarkable. Patient's right wrist and hand x-rays showed no acute process. Patient's clinical presentation is most consistent with carpal tunnel of the right wrist. I explained my physical exam findings as well as all test results to the patient and the patient's boyfriend. I answered all questions asked by the patient and the patient's boyfriend. Patient's right wrist was placed in a velcro splint, without incident. Patient's PMS was intact prior to and after splint placement. I stressed the importance of the patient taking her medication as directed (either prescribed or as the over the counter packaging recommends). I stressed the importance of the patient following up with her primary care provider and the orthopedic team. I stressed the importance of the patient returning to the emergency department immediately if her symptoms were to worsen or if she were to develop any dizziness, shortness of breath, difficulty breathing, chest pain, blurry vision, loss of vision, nausea, vomiting, abdominal pain, fever, chills, back pain, or any other complaints. Patient and the patient's boyfriend verbalized agreement and understanding with this treatment plan and discharge. Differential Diagnosis Differential Diagnoses: The differential diagnosis associated with the presentation includes Right hand sprain Right hand strain Right hand pain Right sided carpal tunnel Admission/Observation Consideration of admission/observation: Escalation of care including admission/observation considered Patient would have been admitted to the hospital had her work up had any findings where hospital admission was appropriate and her clinical presentation warranted hospital admission. Independent Interpretation I performed an independent interpretation of an: Plain X-Ray Interpretation: My interpretation is in agreement with the radiologist's impression of these imaging studies. CLINICAL HISTORY: pain, injury Exam: PA, lateral, oblique, and scaphoid views of the right wrist. Comparison: Right hand radiographs from same time. Findings: Bony alignment is anatomic. No acute fracture. Specifically, no cortical disruption of the scaphoid. No erosions. Impression: No fracture. This document has been electronically signed by: Zeb Khan MD on 02/05/2025 15:41:16 Dictated By: Zeb Khan MD Signed By: Electronically signed by Zeb Khan MD 02/05/25 1542 CLINICAL HISTORY: pain, injury Exam: AP, lateral, and oblique views of the right hand. Comparison: Right wrist radiographs from same time. Findings: Overall bony alignment is anatomic. No acute fracture. No erosions. Impression: No acute findings. This document has been electronically signed by: Zeb Khan MD on 02/05/2025 15:40:36 Dictated By: Zeb Khan MD Signed By: Electronically signed by Zeb Khan MD 02/05/25 1541 Radiology Impression Discussion of test interpretation with radiology: I have reviewed the radiologist's reading. Independent Historian Clinical information obtained from an independent historian. History obtained from or confirmed by: Other (patient's boyfriend provided additional history and confirmed the history provided by the patient.) Discharge Plan Discharge Clinical Impression: Acute carpal tunnel syndrome Patient Disposition: Home, Self-Care Instructions: Carpal Tunnel Syndrome (DC) Additional Instructions: Your x-rays showed no acute fracture. I am suspicious this is carpal tunnel. Take the medication as prescribed and use the splint while sleeping for at least 1 week. Lillian radiograf?as no mostraron gloria fractura aguda. Sospecho que se trata de un s?ndrome del t?harika carpiano. Runnemede la medicaci?n seg?n lo recetado y use la f?yuri mientras duerme hope al menos gloria semana. IF you are prescribed medications and/or you are taking over the counter medications - it is very important you continue to do so as prescribed / directed unless told otherwise. SI le recetan medicamentos y/o est? tomando medicamentos de venta frida, es muy importante que contin?e haci?ndolo seg?n lo recetado/indicado a menos que le indiquen lo contrario. Follow up with your primary care provider. Return to the emergency department immediately if your symptoms worsen or if you develop any dizziness, shortness of breath, difficulty breathing, chest pain, blurry vision, loss of vision, nausea, vomiting, abdominal pain, fever, chills, back pain, or any other complaints. Prisca?seguimiento?con shaffer m?dico de atenci?n primaria. Acuda inmediatamente al servicio de urgencias si lillian s?ntomas empeoran o si presenta falta de aliento, dificultad para respirar, dolor tor?cico, mareos, aturdimiento, dolor de espalda, dolor abdominal, fiebre, escalofr?os o cualquier otro s?ntoma. If you do not have a primary care provider - call any of the below numbers to establish and follow up with a primary care provider. Si no tiene un proveedor de atenci?n primaria, llame a cualquiera de los n?meros que aparecen a continuaci?n para establecer y hacer seguimiento con un proveedor de atenci?n primaria. [facility] Primary Care ([place]) [phone] [address] [facility], [address] [facility] Primary Care ([address] [place]) [phone] [place] [address], [address] [facility], [address] [facility] Primary Care ([address] [place]) [phone] [place] [address], [address] [facility], [address] [facility] Primary Care ([place]) [phone] [place] [address] [address] [facility], [address] [facility] Family Medicine [phone] [address] [facility], [address] Please see the information below about our Patient Portal. If you are not yet enrolled in the [facility] Patient Portal, you will receive an enrollment email invitation following your visit to any [facility] care setting. You may also self-enroll in the Patient Portal by visiting our website: [email or web address] The following information is required to access the Patient Portal: - Your [facility] Medical Record Number - Your personal home email address (must match what is in your electronic medical record, Registration staff can assist with this) - Name - Date of Capabilities of the Patient Portal: - Message some providers - View upcoming appointments - Access your health summary, medical history, and visit history - View current conditions and allergies - View procedure and lab results - View your medications, including guidelines, side effects, and precautions - Complete pre-appointment questionnaires requested by your provider - Ready summary reports of your office visits and procedures To access the Patient Portal Mobile Tree, follow these directions: - Search [employer] in the Tree Store or [employer] - Download the Tree - Search for [facility] - Enter your login/password Portal del paciente Si usted no esta inscrito en el portal de pacientes de [facility], recibira gloria invitacion de inscripcion despues de shaffer visita al [facility] o al [facility] via correo electronico. Tambien puede inscribirse voluntariamente en el portal de pacientes visitando nuestra pagina web: [email or web address] La siguiente informacion sera requerida para acceder al portal: - Shaffer fantasma de historia medica de [facility] - Shaffer direccion de correo electronico personal - Nombre - Fecha de nacimiento Capacidades: Las siguientes capacidades estan disponibles en el portal de pacientes: - Enviar mensajes a algunos doctores - Verificar proximas citas - Acceso a shaffer historial de brenda, registro medico e historial de visitas - Maria Fernanda las condiciones actuales y alergias maria fernanda procedimientos y resultados del laboratorio - Maria Fernanda lillian medicamentos, incluyendo las pautas - Efectos secundarios y precauciones - Completar o llenar formularios / cuestionarios de - Citas solicitadas por shaffer doctor - Leer los resumenes de reportes medicos de lillian visitas y procedimientos Myra acceder a la aplicacion movil: - [employer] [facility] en la Tree Store o [employer] - Descargue la aplicacion - [facility] - Ingrese shaffer nombre de usuario / Contrasena Prescriptions: New prednisone 20 mg tablet 20 mg PO DAILY 7 Days Qty: 7 0RF naproxen 500 mg tablet 500 mg PO BID 7 Days Qty: 14 0RF No Action ondansetron 4 mg tablet,disintegrating 4 mg PO Q8H PRN (Reason: nausea and vomiting) Qty: 20 0RF cephalexin 250 mg capsule 250 mg PO BID Qty: 14 0RF doxycycline hyclate 100 mg capsule 100 mg PO BID Qty: 14 0RF hydrocortisone [Cortisone (hydrocortisone)] 1 % cream 1 appl topical QID PRN (Reason: rash) Qty: 28.4 0RF Referrals: [facility] Orthopedic Surgeons [Provider Group] Referral Note: Call to establish and follow up with the orthopedic team. Llamar para establecer y stefany seguimiento con el equipo de ortopedia. Stand Alone Forms: Work/School Release Interventions: ED Discharge Assessment Last Done: 02/05/25 17:24 Discharge Date/Time: 02/05/25 17:10 Print Language: Honduran
--- OUTSIDE RECORDS SUMMARY | 2025-02-05 17:07 | XMS_ITS | Clinical Summary ---
Author Organization [facility] ity Address [address] [place] [address] Care Team Providers Care Director Of Consumer Affairs Name Role Phone Unavailable Primary Care Provider Unavailabl e Social History Tobacco Use Types Packs/Day Years Used Date Smoking Tobacco: Never Assessed Comments Unknown Sex and Gender Information Value Date Recorded Sex Assigned at Not on file Legal Sex Female 9:07 AM EST Gender Identity Not on file Sexual Orientation Not on file Plan of Treatment Health Maintenance Due Date Last Done Comments Breast Cancer Screening 1978 Hepatitis B Vaccines (1 of 3 - 19+ 3-dose series) 1997 Cervical Cancer Screening: P ap Smear 1999 Colorectal Cancer Screening: Colonoscopy 06/01/2022 HIV Screening 06/01/2022 Hepatitis C Screening 06/01/2022 Social Influencers of Health Screening 06/01/2022 COVID-19 Vaccine (1 - 2023-2 5 season) 2024 Depression Screening 06/29/2024 Influenza Vaccine (#1) 2025 03/26/2016 DTaP,Tdap,and Td Vaccines (2 - Td or Tdap) 12/23/2026 12/23/2016 HIB Vaccines Aged Out No longer eligi ble based on patient's age to complete this topic HPV Vaccines Aged Out No longer eligi ble based on patient's age to complete this topic Hepatitis A Vaccines Aged Out No long er eligible based on patient's age to complete this topic IPV Vaccines Aged Out No longer eligi ble based on patient's age to complete this topic MMR Vaccines Aged Out No longer eligi ble based on patient's age to complete this topic Meningococcal ACWY Vaccine Aged Out N o longer eligible based on patient's age to complete this topic Meningococcal B Vaccine Aged Out No l onger eligible based on patient's age to complete this topic Pneumococcal Vaccine: Pediat rics (0 to 5 Years) and At-Risk Patients (6 to 49 Years) Aged Out No longer eligi ble based on patient's age to complete this topic RSV Immunization Patients Un sorin 20 months Aged Out No longer eligible b ased on patient's age to complete this topic Varicella Vaccines Aged Out No longer eligible based on patient's age to complete this topic
[2025-02-05 17:24] VITALS: BP 118/58; PULSE 80; RESP 16; TEMP 36.1; O2SAT 100
== END 2025-02-05 17:10 | disposition home or self-care (01) ==
PROVIDERS: Emergency Provider Emergency Medicine Emergency Medical Services
DX: G56.01 Carpal tunnel syndrome, right upper limb (principal); M25.531 Pain in right wrist; M79.641 Pain in right hand
CPT/HCPCS: 73110; 73130; 99282; 99283

== ENCOUNTER → 2025-02-05 14:46 | Outpatient (BNV) | payer OTHER, SELFPAY | PROVIDERS: Visit Provider Radiology Diagnostic Radiology | DX: M79.641 Pain in right hand (principal); M25.531 Pain in right wrist | CPT/HCPCS: 73110; 73130 ==

== ENCOUNTER 2025-05-17 14:00 | Outpatient (REF) | payer OTHER, SELFPAY ==
--- OUTSIDE RECORDS SUMMARY | 2007-10-17 20:00 | XMS_ITS | Continuity of Care Document ---
Author Organization [facility] Address [address] [place] [address] Phone Care Team Providers Care Bunk Assembler Name Role Phone NIKHIL ROBLES DMIN Unavailable Unavailable Advance Directives Directive Yes / No Effective Date File Name No Information Encounters Encounter Description Practice Location Reason(s) For Visit Diagnoses Date Provider Providers Copied on Encounter [facility], [address] [place], [id number] tel:[phone] [facility] No Information [address] [employer], [id number], [place], [place], [id number]. tel:[phone] Family History Family Member Type Diagnosis Age At Onset No Information Payers Payer name Insurance type Covered libertarian ID Authoriza tion(s) No Information Social History Type Description Quantity Date Captured Comments Sex Female Smoking Status No Information History Of Present Illness Encounter Date Complaint History Of Prese nt Illness No Information Functional Status Date Functional Assessmen t No Information Instructions Date Instruction Additional Infor mation No Information Assessments Type Assessment Date No Information Patient Care Teams Name Effective Dates (start - stop) Status Members No Information
--- OUTSIDE RECORDS SUMMARY | 2007-10-17 20:00 | XMS_ITS | Continuity of Care Document ---
Author Organization [facility] Address [address] [place] [address] Phone Care Team Providers Care Academic Services Coordinator Name Role Phone NIKHIL ROBLES DMIN Unavailable Unavailable Advance Directives Directive Yes / No Effective Date File Name No Information Encounters Encounter Description Practice Location Reason(s) For Visit Diagnoses Date Provider Providers Copied on Encounter [facility], [address] [place], [place], [id number] tel:[phone] [facility] No Information [address] [employer] [id number], [place], [place], [id number]. tel:[phone] Family History Family Member Type Diagnosis Age At Onset No Information Payers Payer name Insurance type Covered alliance party ID Authoriza tion(s) No Information Social History [...]
--- NOTE | 2025-05-17 14:03 | EMG_ITS ---
Chief complaint: Right wrist pain Reason for referral: Evaluate for Carpal Tunnel Syndrome Referred by: Alex BERMUDEZ Procedure done: Right upper extremity NCS/EMG Precautions and/or limitations: None The limb temperature was monitored continuously and remained between 32-36 degrees C during the performance of the NCS. Nerve Conduction Studies Anti Sensory Summary Table ?Stim Site NR Onset (ms) Norm Onset (ms) Peak (ms) Norm Peak (ms) O-P Amp (?V) Norm O-P Amp Site1 Site2 Delta-0 (ms) Dist (cm) Markie (m/s) Norm Markie (m/s) Right Median Anti Sensory (2nd Digit) Wrist ? 2.3 3.2 <3.6 43.2 >10 Wrist 2nd Digit 2.3 14.0 61 Right Radial Anti Sensory (Thumb) Forearm ? 1.8 2.4 <3.1 29.1 Forearm Thumb 1.8 0.0 Right Ulnar Anti Sensory (5th Digit) Wrist ? 2.4 3.4 <3.7 20.8 >15.0 Wrist 5th Digit 2.4 14.0 58 Motor Summary Table ?Stim Site NR Onset (ms) Norm Onset (ms) O-P Amp (mV) Norm O-P Amp iAmp (mV) Amp (1st) (%) Site1 Site2 Delta-0 (ms) Dist (cm) Markie (m/s) Norm Markie (m/s) Right Median Motor (Abd Poll Brev) Wrist ? 3.1 <3.9 9.9 >4.5 12.1 100.0 Elbow Wrist 3.9 20.0 51 >45 Elbow ? 7.0 9.2 11.1 92.9 Right Ulnar Motor (Abd Dig Minimi) Wrist ? 2.9 <3.0 11.5 >5 13.5 100.0 B Elbow Wrist 2.8 18.0 64 >45 B Elbow ? 5.7 10.0 11.6 87.0 A Elbow B Elbow 0.9 10.0 111 >45 A Elbow ? 6.6 10.8 12.9 93.9 EMG ?Side Muscle Nerve Root Ins Act Fibs Psw Amp Dur Poly Recrt Int Pat Comment Right 1stDorInt Ulnar C8-T1 Nml Nml Nml Nml Nml 0 Nml Complete Right FlexCarRad Median C6-7 Nml Nml Nml Nml Nml 0 Nml Complete Right Biceps Musculocut C5-6 Nml Nml Nml Nml Nml 0 Nml Complete Right Triceps Radial C6-7-8 Nml Nml Nml Nml Nml 0 Nml Complete Right Deltoid Axillary C5-6 Nml Nml Nml Nml Nml 0 Nml Complete FINDINGS: All motor and sensory nerves tested showed normal latencies, amplitudes and conduction velocities. Concentric needle EMG was performed in selected muscles of the right upper extremity. Study did not reveal signs of electric abnormalities as shown in the table above. IMPRESSION: 1. This is a normal study. 2. There is no electrodiagnostic evidence for median neuropathy, ulnar neuropathy, brachial plexopathy, or cervical radiculopathy. Thank you for your kind referral. Chasity Foote MD, PAOLA Board Certified, [place] Board [employer] and Rehabilitation (ABPMR) Board Certified, [place] Board of Electrodiagnostic Medicine (ABEM) CODIN 55819 x 1 extremity MTDD
== END 2025-05-17 14:01 | disposition home or self-care (01) ==
LOC: HO.NEURO 14:00
DX: R20.0 Anesthesia of skin (principal); R20.2 Paresthesia of skin; M25.531 Pain in right wrist
CPT/HCPCS: 95886; 95909

== ENCOUNTER → 2025-05-17 14:03 | Outpatient (BNV) | payer OTHER, SELFPAY | PROVIDERS: Visit Provider Physical Medicine & Rehabilitation | DX: R20.0 Anesthesia of skin (principal); R20.2 Paresthesia of skin | CPT/HCPCS: 95886; 95909 ==

== ENCOUNTER 2025-05-24 10:41 | Outpatient (AMB) | payer OTHER, SELFPAY ==
[2025-05-24 10:47] VITALS: BMI 25.8
--- NOTE | 2025-05-24 10:47 | MHC.OFFVIS ---
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 Patient was referred by [facility] after presenting on 02/05/25 complaining of right hand and wrist pain. Patient reports about 2 years ago she began having numbness and tingling on the volar aspect of her wrist that radiates to her bicep. She has tried using a Velcro wrist brace and Ibuprofen with relief. She denies any numbness, tingling or finger locking of her fingers, however, she does experience episodes of stiffness where she drops objects. Patient denies previous injuries or surgeries to the right hand. She works for [employer] at [employer]. Of note, she is now starting to experience similar symptoms on her left hand. IMPRESSION 05/17/25: 1. This is a normal study. 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 Patient was referred by [facility] after presenting on 02/05/25 complaining of right hand and wrist pain. Patient reports about 2 years ago she began having numbness and tingling on the volar and radial aspect of her wrist that radiates to her bicep. She has tried using a Velcro wrist brace and Ibuprofen with relief. She denies any numbness, tingling or finger locking of her fingers, however, she does experience episodes of stiffness where she drops objects. Patient denies previous injuries or surgeries to the right hand. She works for [employer] at [employer]. Of note, she is now starting to experience similar symptoms on her left hand. IMPRESSION 05/17/25: 1. This is a normal study. [facility] Medical History No known health problems Social History (Updated 05/24/25 @ 10:57 by AMEYA Chow) Current occupational status: employed Current occupation: rt handed, [employer] Review of Systems Const All systems reviewed & are unremarkable except as noted in HPI and below Physical Exam Vital Signs: BMI result Body Mass Index 25.8 Extrem Other: Patient is alert, oriented, and in no acute distress. Neuro: Normal sensation of the tips of all digits of the right hand at this time Vascular: Cap refill brisk Pain: Tenderness to palpation of the volar and radial aspect of the right wrist over the FCR tendon No pain with range of motion of the right hand in the office today Pain with passive extension and resisted flexion of the right wrist in the radial aspect of the volar right wrist ROM: Patient is able to make a closed fist and extend all digits of the right hand fully Range of motion of the right wrist full and intact Skin: No lacerations or abrasions. General: No ecchymosis, erythema, or evidence of infection. Psych: Appears grossly normal Affect normal Attitude cooperative Assessment & Plan Assessment & Plan (1) Flexor carpi radialis tendinitis of right wrist: Code(s): M77.8 - Other enthesopathies, not elsewhere classified Category: Medical Plan 1. FCR tendinitis of right wrist Patient is educated about this condition Patient is educated about the typical recovery course At this time, patient is provided with a Velcro wrist splint to be worn with daytime activities while her wrist is particularly bothering her Patient is also referred to occupational therapy for range of motion and strengthening of the right wrist and hand in the setting of FCR tendinitis and associated cramping and weakness of the right hand Patient understands this and is amenable to this plan Follow-up as needed with any acute concerns Orders: Orders OT Evaluation and Treatment Today M77.8 - Other enthesopathies, not elsewhere classified Medications: Discontinued cephalexin Discontinued Reason: Patient no longer taking 250 mg PO BID 14 caps 0RF doxycycline hyclate Discontinued Reason: Patient no longer taking 100 mg PO BID 14 caps 0RF prednisone Discontinued Reason: Patient Completed Course 20 mg PO DAILY 7 days 7 tabs 0RF Coding Level of Care Code New Pt Level 3 (84478) Diagnoses Flexor carpi radialis tendinitis of right wrist M77.8
--- OUTSIDE RECORDS SUMMARY | 2025-05-24 12:54 | XMS_ITS | Clinical Summary ---
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 Name Role Phone Unavailable Primary Care Provider [...] Last Done Comments Breast Cancer Screening 1978 Colorectal Cancer Screening: Colonoscopy 1978 Hepatitis B Vaccines (1 of 3 - 19+ 3-dose series) 1997 Cervical Cancer Screening: P ap Smear 1999 HIV Screening 06/01/2022 Hepatitis C Screening 06/01/2022 Social Influencers of Health Screening 06/01/2022 Depression Screening 06/29/2024 COVID-19 Vaccine (1 - 2024-2 6 season) 2025 Influenza Vaccine (#1) 2025 03/26/2016 DTaP,Tdap,and Td Vaccines (2 - Td or Tdap) 12/23/2026 12/23/2016 RSV Immunization Adult Patie nts (1 - 1-dose 75+ series) 2053 HIB Vaccines Aged Out No longer eligi [...]
== END 2025-05-24 11:06 | disposition home or self-care (01) ==
LOC: HO.HOS 10:41
DX: M77.8 Other enthesopathies, not elsewhere classified (principal)
CPT/HCPCS: 99203

== ENCOUNTER → 2025-05-24 10:41 | Outpatient (BNVA) | payer OTHER, SELFPAY | DX: M77.8 Other enthesopathies, not elsewhere classified (principal) | CPT/HCPCS: 99202 ==